=== PATIENT | male | born 1955 | race Caucasian/White ===

== ENCOUNTER 2017-10-01 08:56 | Inpatient (IN) | payer OTHER ==
[~2017-10-01] VITALS: Ht 177.8 cm; Wt 107.1 kg
[~2017-10-01 08:56] MED LIST: ASPI1TAB83 PO; CEPH500C PO; Centrum Silver PO; FEXO1TAB46 PO; LISI-791 PO; METO-478 PO; WARF5TAB90 PO
[2017-10-01] MEDS ORDERED: SODIUM CHLORIDE 0.9% 1000ML 500 ML IV STA (09:34)
[2017-10-01] MEDS ORDERED: ALBUT/IPRATROP 3MG/0.5MG NEB 3 ML VIAL INH STA (09:34)
[2017-10-01] MEDS ORDERED: METHYLPREDNISOLONE 125 MG VIAL IV STA (09:38)
--- NOTE | 2017-10-01 09:52 | EMERGENCY ROOM VISIT NOTE ---
History Report prepared by Radhika: Jolene Lyn Under the Supervision of: Dr. Tim Trejo M.D. First contact with patient: 09:30 Chief Complaint: SHORTNESS OF BREATH Stated Complaint: SHORTNESS OF BREATH History of Present Illness The patient is a 62 year old male who presents to the Emergency Room with complaints of worsening shortness of breath beginning about three weeks ago. The patient states he was sick with a head cold, diarrhea, hot and cold flashes , and body aches beginning three weeks ago. Since being sick three weeks ago, he reports he has been very fatigued and short of breath. The patient's shortness of breath worsens with movement. He states he feels like he "can't get a full breath". The patient was sent into the ED by his PCP for shortness of breath and a low oxygen saturation. He denies any productive cough. The patient has a history of asthma. He states he rarely has difficulty with his asthma. He tried using his rescue inhaler with minimal relief. He denies any history of pneumonia. The patient notes a history of "fluid around his heart" which he believes was CHF. The patient takes 81 mg of Aspirin daily. The patient was previously on Coumadin for a history of a DVT. He did not get a flu shot this year. The patient notes some recent sick contacts. Source of History: patient Onset: three weeks ago Position: other (generalized) Quality: other (shortness of breath) Timing: worsening Modifying Factors (Worsening): movement Associated Symptoms: + SOB, + fatigue, No cough Review of Systems See HPI for pertinent positives & negatives. A total of 10 systems reviewed and were otherwise negative. Past Medical & Surgical Medical Problems: (1) Asthma (2) Diastolic CHF (3) DVT (deep venous thrombosis) (4) Dyslipidemia (5) HTN (hypertension) Surgical Problems: (1) History of cataract surgery Social History Smoking Status: Never Smoker Alcohol Use: occasionally Marital Status: single Housing Status: lives alone Occupation Status: employed Current/Historical Medications Scheduled Aspirin (Aspirin), 81 MG PO DAILY Atorvastatin (Lipitor), 1 TAB PO DAILY Fluticasone Prop/Salmeterol (Advair Diskus 250/50 60 Dose), 1 PUFF INH BID Lisinopril (Zestril), 10 MG PO DAILY Metformin Hcl (Glucophage), 1 TAB PO BID Metoprolol Succinate (Toprol Xl), 25 MG PO DAILY Multiple Vitamins W/ Minerals (Centrum Silver 50+Men), 1 TAB PO DAILY Scheduled PRN Albuterol Sulfate (Proair Respiclick), 2 PUFFS INH QID PRN for SOB/Wheezing Fexofenadine Hcl (Pilar), 180 MG PO DAILY PRN Allergies Coded Allergies: No Known Allergies (Unverified , 02/10/13) Physical Exam Vital Signs Date Time Temp Pulse Resp B/P (MAP) Pulse Ox O2 Delivery O2 Flow Rate FiO2 10/01/17 11:19 99 24 156/102 94 Nasal Cannula 2.0 10/01/17 09:45 81 Room Air 10/01/17 09:43 92 Nasal Cannula 2.0 10/01/17 09:43 92 Nasal Cannula 2.0 10/01/17 09:34 105 10/01/17 09:06 36.4 112 24 148/86 84 Room Air Physical Exam GENERAL: Patient is in no acute distress. HEENT: No acute trauma, normocephalic atraumatic, mucous membranes dry, no nasal congestion, no scleral icterus. NECK: No stridor, no adenopathy, no meningismus, trachea is midline. LUNGS: Decreased breath sounds with bilateral wheezing, breath sounds equal, a few crackles at both bases. HEART: Without murmurs gallops or rubs, regular rate and rhythm. ABDOMEN: Soft, nontender, bowel sounds positive, no hernias, no peritonitis. EXTREMITIES: Mild pedal edema bilaterally, no cyanosis, full range of motion of all the joints without pain or difficulty, no signs for acute trauma. NEUROLOGIC: Oriented x 3, no acute motor or sensory deficits, no focal weakness. SKIN: No rash, no jaundice, no diaphoresis. Medical Decision & Procedures ER Provider Diagnostic Interpretation: Radiology results as stated below per my review and radiologist interpretation: CHEST ONE VIEW PORTABLE FINDINGS: Atherosclerosis of the aortic arch. Cardiac silhouette normal in size. Lungs and pleural spaces clear. Degenerative changes of the thoracic spine. Upper abdomen normal. IMPRESSION: 1. No acute cardiopulmonary disease. Electronically signed by: John Figueredo M.D. CT ANGIOGRAM OF THE CHEST FINDINGS: Thyroid: Imaged portions of the thyroid gland are normal in size and attenuation. Thoracic aorta: The thoracic aorta is normal in caliber and demonstrates standard 3-vessel arch anatomy. No dissection is seen. Pulmonary vasculature: The pulmonary trunk is normal in caliber. There are are extensive pulmonary emboli identified bilaterally. Thrombus is present within the distal right and left main pulmonary arteries. This extends into all lobar branches, and involves segmental and subsegmental branches throughout. Heart: The heart is normal in size and configuration, and without pericardial effusion. Lungs and pleural spaces: There is no airspace consolidation or pleural effusion. The trachea and central airways are clear. There is a 7 mm pulmonary nodule identified at the left lung base on image #76. A 4 mm left lower lobe nodule is seen on image #100. Mediastinum: There is no mediastinal lymphadenopathy. Linda: Clear. Axillae: There is no axillary lymphadenopathy. Upper abdomen: Calcified gallstones are identified. There is reflux of contrast into the abdominal aorta and IVC. Skeletal structures: No lytic or blastic bony lesions are seen. Degenerative change is seen throughout the thoracic spine. IMPRESSION: 1. There are extensive bilateral pulmonary emboli as above. 2. There is no airspace consolidation or pleural effusion. 3. There are 2 pathologically indeterminant left lower lobe pulmonary nodules measuring up to 7 mm. These can be followed as per the Fleischner criteria. See below. 4. Reflux of contrast into the IVC and hepatic veins suggests cardiac dysfunction. 5. Cholelithiasis. Please refer to below summary of Fleischner criteria recommendations for follow-up of incidental CT nodules (Jonathan Brown, Guidelines for management of small pulmonary nodules detected on CT scans: A statement from the Fleischner Society, Radiology 237: [phone].) SOLID NODULES Solitary nodule size: <6 mm * low risk patients: no follow-up needed * high risk patients: optional CT at 12 months Solitary nodule size: 6-8 mm * low risk patients: follow-up at 6-12 months, then consider further follow-up at 18-24 months * high risk patients: initial follow-up CT at 6-12 months and then at 18-24 months if no change Solitary nodule size: >8 mm * either low or high risk patients - consider follow-up CT at 3 months, and/or CT-PET, and/or biopsy Multiple nodules size: <6 mm * low risk patients: no routine follow-up * high risk patients: optional CT at 12 months Multiple nodules size: 6-8 mm * low risk patients: follow-up at 3-6 months, then consider further follow-up at 18-24 months * high risk patients: follow-up at 3-6 months, then at 18-24 months if no change Multiple nodules size: >8 mm * low risk patients: follow-up at 3-6 months, then consider further follow-up at 18-24 months * high risk patients: follow-up at 3-6 months, then at 18-24 months if no change Note: newly detected indeterminate nodule in persons 35 years of age or older. * low risk patients: minimal or absent history of smoking and/or other known risk factors * high risk patients: history of smoking or of other known risk factors (e.g. first degree relative with lung cancer, or exposure to asbestos, radon, uranium) * if a nodule up to 8 mm is partly solid or is ground glass further follow-up is required after 24 months to exclude possible slow growing adenocarcinoma (TEJAL) SUBSOLID NODULES Solitary pure ground-glass nodule * nodule size <6 mm - no CT follow-up required * nodule size >=6 mm - follow-up CT at 6-12 months, then every 2 years until 5 years Solitary part-solid nodule * nodule size <6 mm - no CT follow-up required * nodule size >=6 mm - follow-up CT at 3-6 months. If unchanged, and solid component remains <6 mm, then annual follow-up for 5 years Multiple subsolid nodules * nodule size <6 mm - follow-up CT at 3-6 months, consider further follow-up at 2 and 4 years if stable * nodule size >=6 mm - follow-up CT at 3-6 months, subsequent management based on the most suspicious nodule(s) Electronically signed by: Tim Cullen M.D. Laboratory Results 10/01/17 09:30 Red Blood Count 5.65, Mean Corpuscular Volume 86.9, Mean Corpuscular Hemoglobin 30.1, Mean Corpuscular Hemoglobin Concent 34.6, Mean Platelet Volume 12.7, Neutrophils (%) (Auto) 72.1, Lymphocytes (%) (Auto) 16.9, Monocytes (%) (Auto) 8.9, Eosinophils (%) (Auto) 0.9, Basophils (%) (Auto) 0.2, Neutrophils # (Auto) 7.27, Lymphocytes # (Auto) 1.71, Monocytes # (Auto) 0.90, Eosinophils # (Auto) 0.09, Basophils # (Auto) 0.02 10/01/17 09:30 Test 10/01/17 09:30 10/01/17 10:00 White Blood Count 10.09 K/uL (4.8-10.8) Red Blood Count 5.65 M/uL (4.7-6.1) Hemoglobin 17.0 g/dL (14.0-18.0) Hematocrit 49.1 % (42-52) Mean Corpuscular Volume 86.9 fL (80-100) Mean Corpuscular Hemoglobin 30.1 pg (25-34) Mean Corpuscular Hemoglobin Concent 34.6 g/dl (32-36) Platelet Count 152 K/uL (130-400) Mean Platelet Volume 12.7 fL (7.4-10.4) Neutrophils (%) (Auto) 72.1 % Lymphocytes (%) (Auto) 16.9 % Monocytes (%) (Auto) 8.9 % Eosinophils (%) (Auto) 0.9 % Basophils (%) (Auto) 0.2 % Neutrophils # (Auto) 7.27 K/uL (1.4-6.5) Lymphocytes # (Auto) 1.71 K/uL (1.2-3.4) Monocytes # (Auto) 0.90 K/uL (0.11-0.59) Eosinophils # (Auto) 0.09 K/uL (0-0.5) Basophils # (Auto) 0.02 K/uL (0-0.2) RDW Standard Deviation 43.4 fL (36.4-46.3) RDW Coefficient of Variation 13.6 % (11.5-14.5) Immature Granulocyte % (Auto) 1.0 % Immature Granulocyte # (Auto) 0.10 K/uL (0.00-0.02) Prothrombin Time 10.8 SECONDS (9.0-12.0) Prothromb Time International Ratio 1.0 (0.9-1.1) Activated Partial Thromboplast Time 25.1 SECONDS (21.0-31.0) Partial Thromboplastin Ratio 1.0 Anion Gap 13.0 mmol/L (3-11) Est Creatinine Clear Calc Drug Dose 64.4 ml/min Estimated GFR () 58.6 Estimated GFR (Non- 50.5 BUN/Creatinine Ratio 7.2 (10-20) Calcium Level 9.0 mg/dl (8.5-10.1) Magnesium Level 2.0 mg/dl (1.8-2.4) Total Bilirubin 0.9 mg/dl (0.2-1) Aspartate Amino Transf (AST/SGOT) 28 U/L (15-37) Alanine Aminotransferase (ALT/SGPT) 34 U/L (12-78) Alkaline Phosphatase 68 U/L (45-117) Total Protein 8.3 gm/dl (6.4-8.2) Albumin 3.6 gm/dl (3.4-5.0) Globulin 4.7 gm/dl (2.5-4.0) Albumin/Globulin Ratio 0.8 (0.9-2) Beta-Hydroxybutyric Acid 8.05 mg/dL (0.2-2.81) Influenza Type A Antigen Neg for Influ A (NEG) Influenza Type B Antigen Neg for Influ B (NEG) Laboratory results reviewed by me. Medications Administered Medications (Trade) Dose Ordered Sig/Preethi Route Start Time Stop Time Status Last Admin Dose Admin Sodium Chloride 500 ml @ 999 mls/hr Q31M STAT IV 10/01/17 09:34 10/01/17 10:04 DC 10/01/17 10:02 999 MLS/HR Albuterol/ Ipratropium (Duoneb) 3 ml NOW STAT INH 10/01/17 09:34 10/01/17 09:37 DC 10/01/17 10:02 3 ML Methylprednisolone Sodium Succinate (Solu-Medrol IV) 125 mg NOW STAT IV 10/01/17 09:38 10/01/17 09:39 DC 10/01/17 10:02 125 MG Insulin Human Regular (novoLIN-R U-100 PER UNIT) 10 units NOW STAT IV 10/01/17 10:31 10/01/17 10:32 DC 10/01/17 11:15 10 UNITS ECG Indication: SOB/dyspnea Rate (beats per minute): 105 Findings: no acute ischemic change, no ectopy, other (diffuse nonspecific ST changes) Change: EKG interpreted by me ED Course 0931: The patient was evaluated in room C4. A complete history and physical exam was performed. 0934: Ordered Duoneb 3 ml INH, Sodium Chloride 500 ml @ 999 mls/hr IV. 0938: Ordered Solu-Medrol IV 125 mg IV. 1031: Ordered Insulin Human Regular 10 units IV, Sodium Chloride 500 ml @ 999 mls/hr IV. 1043: Discussed the patient's case with Sandra Sierra. The patient will be evaluated for further management. 1048: I updated the patient on the treatment plan. He is agreeable to come into the hospital. Medical Decision Differential diagnoses include: pneumonia, bronchitis, influenza or flu like symptoms, CHF, dehydration, cardiac ischemia, anemia, PE, asthma exacerbation. There is no leukocytosis or concerning anemia. Renal panel testing shows a high sugar at over 400. No hepatitis. EKG shows a sinus tachycardia with some nonspecific T-wave change. Cardiac enzyme testing times one does show a mild troponin elevation consistent with cardiac injury or strain. No coagulopathy. Influenza testing is negative. Chest film does not show pneumonia or CHF. Chest CT shows bilateral pulmonary emboli. The patient presents with symptoms for weeks. He looked dehydrated clinically. He was slightly tachycardic, he was hypoxic. The patient received IV saline, IV insulin. He was given a DuoNeb. He was given IV Solu-Medrol. He was maintained on supplemental oxygen. The patient requires a hospital stay. He has bilateral pulmonary emboli, he is hyperglycemic, there is a troponin elevation. He is wheezing on exam and appears to be having a flare of asthma. I did speak with the patient and case management. The on-call hospitalist was consulted. Medication Reconcilliation Current Medication List: was personally reviewed by fl Blood Pressure Screening Patient's blood pressure: Elevated blood pressure Blood pressure disposition: Referred to PCP Consults Time Called: 1039 Consulting Physician: Sandra Sierra Returned Call: [phone] Discussed the patient's case with Sandra Sierra. The patient will be evaluated for further management. Impression Primary Impression: Hypoxia Additional Impressions: Hyperglycemia Dehydration Asthma with exacerbation Pulmonary embolism Critical Care I have personally spent greater than 30 minutes of critical care time in the direct management of this patient. This includes bedside care, interpretation of diagnostic studies, and testing, discussion with consultants, patient, and family members, and other required patient management activities. This 30 minutes is in excess of all separately billable procedures. Scribe Attestation The scribe's documentation has been prepared under my direction and personally reviewed by me in its entirety. I confirm that the note above accurately reflects all work, treatment, procedures, and medical decision making performed by me. Departure Information Dispostion Being Evaluated By Hospitalist Referrals Chun Su M.D. (PCP) Patient Instructions My [facility] Problem Qualifiers
--- NOTE | 2017-10-01 09:58 | DIAGNOSTIC IMAGING REPORT ---
CHEST ONE VIEW PORTABLE CLINICAL HISTORY: 62 years-old Male presenting with EVALUATE RESPIRATORY DISTRESS.DYSPNEA. TECHNIQUE: Portable upright AP view of the chest was obtained. COMPARISON: None. FINDINGS: Atherosclerosis of the aortic arch. Cardiac silhouette normal in size. Lungs and pleural spaces clear. Degenerative changes of the thoracic spine. Upper abdomen normal. IMPRESSION: 1. No acute cardiopulmonary disease. Electronically signed by: John Figueredo M.D. 10/01/2017 9:57 AM Dictated Date/Time: 10/01/2017 9:56 AM
[2017-10-01 09:59] LABS: BASO % 0.2 %; BASO ABS # 0.02 K/uL (0-0.2); EOS % 0.9 %; EOS ABS # 0.09 K/uL (0-0.5); HEMATOCRIT 49.1 % (42-52); LYMPH % 16.9 %; LYMPH ABS # 1.71 K/uL (1.2-3.4); MEAN CELL VOLUME 86.9 fL (80-100); MEAN CORPUSCULAR HEMOGLOBIN 30.1 pg (25-34); MEAN CORPUSCULAR HGB CONC 34.6 g/dl (32-36); MEAN PLATELET VOLUME 12.7 fL (7.4-10.4); MONO % 8.9 %; NEUT % 72.1 %; NEUT ABS # 7.27 K/uL (1.4-6.5); PLATELET COUNT 152 K/uL (130-400); RED CELL DISTRIBUTION WIDTH CV 13.6 % (11.5-14.5); RED CELL DISTRIBUTION WIDTH SD 43.4 fL (36.4-46.3); WHITE BLOOD COUNT 10.09 K/uL (4.8-10.8)
[2017-10-01 10:08] LABS: PTT PATIENT 25.1 SECONDS (21.0-31.0)
[2017-10-01 10:19] LABS: ALBUMIN 3.6 gm/dl (3.4-5.0); CREATININE 1.45 mg/dl (0.60-1.40); POTASSIUM 3.4 mmol/L (3.5-5.1)
[2017-10-01 10:23] LABS: TOTAL PROTEIN 8.3 gm/dl (6.4-8.2)
[2017-10-01] MEDS ORDERED: OPTIRAY 320 IV PRN (10:30)
[2017-10-01] MEDS ORDERED: SODIUM CHLORIDE 0.9% 500ML 500 ML IV STA (10:31)
[2017-10-01] MEDS ORDERED: NovoLIN-R INSULIN PER UNIT CHARGE IV STA (10:31)
[2017-10-01 10:32] LABS: INFLUENZA B ANTIGEN Neg for Influ B (NEG)
[2017-10-01] MEDS ORDERED: SODIUM CHLORIDE 0.9% 1000ML 1,000 ML IV SCH (11:17)
[2017-10-01] MEDS ORDERED: INSULIN IV INFUSION PROTOCOL STA (11:20)
[2017-10-01] MEDS ORDERED: ASPIRIN 324 MG CHEW PO STA (11:22)
[2017-10-01] MEDS ORDERED: POTASSIUM CHLORIDE 20 MEQ TABCR PO STA (11:29)
[2017-10-01] MEDS ORDERED: HHS GOAL RANGE 250-350 mg/dl ONE (11:30)
[2017-10-01] MEDS ORDERED: PHARMACY GLYCEMIC MGMT CONSULT PRN (11:30)
[2017-10-01] MEDS ORDERED: ACETAMINOPHEN 325 MG TAB PO PRN (11:30)
[2017-10-01] MEDS ORDERED: ONDANSETRON INJ 2 MG/ML 2 ML VIAL IV PRN (11:30)
[2017-10-01] MEDS ORDERED: SEVERE STRESS LEVEL ONE (11:30)
[2017-10-01] MEDS ORDERED: DEXTROSE 50% 50 ML SYR IV PRN (11:45)
[2017-10-01] MEDS ORDERED: GLUCOSE 40% GEL 15 GM TUBE PO PRN (11:45)
[2017-10-01] MEDS ORDERED: GLUCAGON FOR INJ 1 MG VIAL SQ PRN (11:45)
[2017-10-01] MEDS ORDERED: GLUCOSE 10 TABS/TUBE PO PRN (11:45)
--- NOTE | 2017-10-01 11:47 | DIAGNOSTIC IMAGING REPORT ---
CT ANGIOGRAM OF THE CHEST CLINICAL HISTORY: Atypical chest pain. Dyspnea. COMPARISON STUDY: Chest x-ray dated 10/01/2017. TECHNIQUE: Following the IV administration of 94 cc of Optiray 320, CT angiogram of the chest was performed from the upper abdomen to the thoracic inlet utilizing the pulmonary embolus protocol. Images are reviewed in the axial, sagittal, and coronal planes. 3-D MIPS images are created and assessed. IV contrast was administered without complication. A dose lowering technique was utilized adhering to the principles of ALARA. CT DOSE: 619.44 mGy.cm FINDINGS: Thyroid: Imaged portions of the thyroid gland are normal in size and attenuation. Thoracic aorta: The thoracic aorta is normal in caliber and demonstrates standard 3-vessel arch anatomy. No dissection is seen. Pulmonary vasculature: The pulmonary trunk is normal in caliber. There are are extensive pulmonary emboli identified bilaterally. Thrombus is present within the distal right and left main pulmonary arteries. This extends into all lobar branches, and involves segmental and subsegmental branches throughout. Heart: The heart is normal in size and configuration, and without pericardial effusion. Lungs and pleural spaces: There is no airspace consolidation or pleural effusion. The trachea and central airways are clear. There is a 7 mm pulmonary nodule identified at the left lung base on image #76. A 4 mm left lower lobe nodule is seen on image #100. Mediastinum: There is no mediastinal lymphadenopathy. Linda: Clear. Axillae: There is no axillary lymphadenopathy. Upper abdomen: Calcified gallstones are identified. There is reflux of contrast into the abdominal aorta and IVC. Skeletal structures: No lytic or blastic bony lesions are seen. Degenerative change is seen throughout the thoracic spine. IMPRESSION: 1. There are extensive bilateral pulmonary emboli as above. 2. There is no airspace consolidation or pleural effusion. 3. There are 2 pathologically indeterminant left lower lobe pulmonary nodules measuring up to 7 mm. These can be followed as per the Fleischner criteria. See below. 4. Reflux of contrast into the IVC and hepatic veins suggests cardiac dysfunction. 5. Cholelithiasis. Please refer to below summary of Fleischner criteria recommendations for follow-up of incidental CT nodules (Jonathan Brown, Guidelines for management of small pulmonary nodules detected on CT scans: A statement from the Fleischner Society, Radiology 237: [phone].) SOLID NODULES Solitary nodule size: <6 mm * low risk patients: no follow-up needed * high risk patients: optional CT at 12 months Solitary nodule size: 6-8 mm * low risk patients: follow-up at 6-12 months, then consider further follow-up at 18-24 months * high risk patients: initial follow-up CT at 6-12 months and then at 18-24 months if no change Solitary nodule size: >8 mm * either low or high risk patients - consider follow-up CT at 3 months, and/or CT-PET, and/or biopsy Multiple nodules size: <6 mm * low risk patients: no routine follow-up * high risk patients: optional CT at 12 months Multiple nodules size: 6-8 mm * low risk patients: follow-up at 3-6 months, then consider further follow-up at 18-24 months * high risk patients: follow-up at 3-6 months, then at 18-24 months if no change Multiple nodules size: >8 mm * low risk patients: follow-up at 3-6 months, then consider further follow-up at 18-24 months * high risk patients: follow-up at 3-6 months, then at 18-24 months if no change Note: newly detected indeterminate nodule in persons 35 years of age or older. * low risk patients: minimal or absent history of smoking and/or other known risk factors * high risk patients: history of smoking or of other known risk factors (e.g. first degree relative with lung cancer, or exposure to asbestos, radon, uranium) * if a nodule up to 8 mm is partly solid or is ground glass further follow-up is required after 24 months to exclude possible slow growing adenocarcinoma (TEJAL) SUBSOLID NODULES Solitary pure ground-glass nodule * nodule size <6 mm - no CT follow-up required * nodule size >=6 mm - follow-up CT at 6-12 months, then every 2 years until 5 years Solitary part-solid nodule * nodule size <6 mm - no CT follow-up required * nodule size >=6 mm - follow-up CT at 3-6 months. If unchanged, and solid component remains <6 mm, then annual follow-up for 5 years Multiple subsolid nodules * nodule size <6 mm - follow-up CT at 3-6 months, consider further follow-up at 2 and 4 years if stable * nodule size >=6 mm - follow-up CT at 3-6 months, subsequent management based on the most suspicious nodule(s) Electronically signed by: Tim Cullen M.D. 10/01/2017 11:45 AM Dictated Date/Time: 10/01/2017 11:40 AM
[2017-10-01] MEDS ORDERED: ALBUT/IPRATROP 3MG/0.5MG NEB 3 ML VIAL INH PRN (12:00)
[2017-10-01 12:15] VITALS: BP 159/102; PULSE 100; TEMP 36.4; O2SAT 96; BMI 35.3
[2017-10-01] MEDS ORDERED: MULT-1093 PO (12:24)
[2017-10-01] MEDS ORDERED: ALBU18002 INH (12:24)
[2017-10-01] MEDS ORDERED: METF850T PO (12:24)
[2017-10-01] MEDS ORDERED: ATOR10TA82 PO (12:24)
[2017-10-01] MEDS ORDERED: ADVIN25/60 INH (12:24)
[2017-10-01] MEDS ORDERED: METOPROLOL SUCC 25MG EXT REL TAB PO ONE (13:00)
[2017-10-01] MEDS: INSULIN REGULAR 250 UNITS in SODIUM CHLORIDE 0.9% 250ML 250 ML IV SCH ×3 (13:01→17:57)
[2017-10-01] MEDS: POTASSIUM CHLORIDE INJ 40 MEQ in SODIUM CHLORIDE 0.9% 1000ML 1,000 ML IV SCH (13:06)
--- NOTE | 2017-10-01 13:20 | History and Physical ---
History & Physical Date & Time of Service: Oct 01, 2017 ~ 11:00 Chief Complaint: Shortness of Breath Primary Care Physician: Chun Su M.D. History of Present Illness 62 year old male who presents to the ED with shortness of breath. Patient reports his symptoms have been present for the past 3 weeks. He reports it initially started with sinus congestion and cough. He then developed nausea and vomiting. He denies hematemesis or coffee ground emesis. He had episodes of body aches, hot flashes, and chills. He did not take his temperature. He reports most of his symptoms resolved about 3 days ago however shortness of breath and cough has persisted. He has shortness of breath with minimal exertion. Cough has been non productive. He has history of asthma however does not use his inhalers routinely. He also self stopped most of his medications several months ago. He denies abdominal pain or diarrhea. No lightheadedness, dizziness, diaphoresis, or syncopal events. He denies chest pain. No urinary symptoms. In the ED, patient's labs show a mildly elevated troponin and hyperglycemia. He was also hypoxic on room air at 81%, this improved with oxygen 2L via NC. CTA chest shows BL PEs. Past Medical/Surgical History Medical Problems: (1) Asthma Status: Chronic (2) Diastolic CHF Status: Chronic (3) DVT (deep venous thrombosis) Permanent Comment: 2012, completed 1 year of Coumadin therapy Status: Chronic (4) Dyslipidemia Status: Chronic (5) HTN (hypertension) Status: Chronic Surgical Problems: (1) History of cataract surgery Status: Chronic Family History FH: heart disease MOTHER FH: lung cancer FATHER Social History Smoking Status: Never Smoker Alcohol Use: occasionally Immunizations History of Influenza Vaccine: Yes Influenza Vaccine Date: Jun 14, 2007 History of Tetanus Vaccine?: Yes Tetanus Immunization Date: Jun 03, 2005 History of Pneumococcal: Yes Pneumococcal Date: Jul 03, 2001 Allergies Coded Allergies: No Known Allergies (Unverified , 02/10/13) Home Medications Scheduled Aspirin (Aspirin), 81 MG PO DAILY Atorvastatin (Lipitor), 1 TAB PO DAILY Fluticasone Prop/Salmeterol (Advair Diskus 250/50 60 Dose), 1 PUFF INH BID Lisinopril (Zestril), 10 MG PO DAILY Metformin Hcl (Glucophage), 1 TAB PO BID Metoprolol Succinate (Toprol Xl), 25 MG PO DAILY Multiple Vitamins W/ Minerals (Centrum Silver 50+Men), 1 TAB PO DAILY Scheduled PRN Albuterol Sulfate (Proair Respiclick), 2 PUFFS INH QID PRN for SOB/Wheezing Fexofenadine Hcl (Pilar), 180 MG PO DAILY PRN Review of Systems ROS per HPI, all other systems reviewed and negative Physical Exam Vital Signs Date Time Temp Pulse Resp B/P (MAP) Pulse Ox O2 Delivery O2 Flow Rate FiO2 10/01/17 11:47 100 24 163/91 94 Nasal Cannula 2.0 10/01/17 11:19 99 24 156/102 94 Nasal Cannula 2.0 10/01/17 09:45 81 Room Air 10/01/17 09:43 92 Nasal Cannula 2.0 10/01/17 09:43 92 Nasal Cannula 2.0 10/01/17 09:34 105 10/01/17 09:06 36.4 112 24 148/86 84 Room Air please refer to Dr. Malone's addendum for physical exam Diagnostics Laboratory Results Results Past 24 Hours Test 10/01/17 09:30 10/01/17 10:00 Range/Units White Blood Count 10.09 4.8-10.8 K/uL Red Blood Count 5.65 4.7-6.1 M/uL Hemoglobin 17.0 14.0-18.0 g/dL Hematocrit 49.1 42-52 % Mean Corpuscular Volume 86.9 80-100 fL Mean Corpuscular Hemoglobin 30.1 25-34 pg Mean Corpuscular Hemoglobin Concent 34.6 32-36 g/dl Platelet Count 152 130-400 K/uL Mean Platelet Volume 12.7 7.4-10.4 fL Neutrophils (%) (Auto) 72.1 % Lymphocytes (%) (Auto) 16.9 % Monocytes (%) (Auto) 8.9 % Eosinophils (%) (Auto) 0.9 % Basophils (%) (Auto) 0.2 % Neutrophils # (Auto) 7.27 1.4-6.5 K/uL Lymphocytes # (Auto) 1.71 1.2-3.4 K/uL Monocytes # (Auto) 0.90 0.11-0.59 K/uL Eosinophils # (Auto) 0.09 0-0.5 K/uL Basophils # (Auto) 0.02 0-0.2 K/uL RDW Standard Deviation 43.4 36.4-46.3 fL RDW Coefficient of Variation 13.6 11.5-14.5 % Immature Granulocyte % (Auto) 1.0 % Immature Granulocyte # (Auto) 0.10 0.00-0.02 K/uL Prothrombin Time 10.8 9.0-12.0 SECONDS Prothromb Time International Ratio 1.0 0.9-1.1 Activated Partial Thromboplast Time 25.1 21.0-31.0 SECONDS Partial Thromboplastin Ratio 1.0 Sodium Level 133 136-145 mmol/L Potassium Level 3.4 3.5-5.1 mmol/L Chloride Level 98 98-107 mmol/L Carbon Dioxide Level 22 21-32 mmol/L Anion Gap 13.0 3-11 mmol/L Blood Urea Nitrogen 11 7-18 mg/dl Creatinine 1.45 0.60-1.40 mg/dl Est Creatinine Clear Calc Drug Dose 64.4 ml/min Estimated GFR () 58.6 Estimated GFR (Non- 50.5 BUN/Creatinine Ratio 7.2 10-20 Random Glucose 414 70-99 mg/dl Calcium Level 9.0 8.5-10.1 mg/dl Magnesium Level 2.0 1.8-2.4 mg/dl Total Bilirubin 0.9 0.2-1 mg/dl Aspartate Amino Transf (AST/SGOT) 28 15-37 U/L Alanine Aminotransferase (ALT/SGPT) 34 12-78 U/L Alkaline Phosphatase 68 45-117 U/L Troponin I 0.217 0-0.045 ng/ml Total Protein 8.3 6.4-8.2 gm/dl Albumin 3.6 3.4-5.0 gm/dl Globulin 4.7 2.5-4.0 gm/dl Albumin/Globulin Ratio 0.8 0.9-2 Beta-Hydroxybutyric Acid 8.05 0.2-2.81 mg/dL Influenza Type A Antigen Neg for Influ A NEG Influenza Type B Antigen Neg for Influ B NEG Microbiology Results 10/01/17 Blood Culture, Received Pending 10/01/17 Blood Culture, Received Pending Diagnostic Radiology CXR IMPRESSION: 1. No acute cardiopulmonary disease. CTA CHEST IMPRESSION: 1. There are extensive bilateral pulmonary emboli as above. 2. There is no airspace consolidation or pleural effusion. 3. There are 2 pathologically indeterminant left lower lobe pulmonary nodules measuring up to 7 mm. These can be followed as per the Fleischner criteria. See below. 4. Reflux of contrast into the IVC and hepatic veins suggests cardiac dysfunction. 5. Cholelithiasis. Impression Assessment and Plan ACUTE HYPOXIC RESPIRATORY FAILURE BILATERAL PULMONARY EMBOLISM - admit to tele - patient presenting with persistent shortness of breath with minimal exertion x 3 weeks; in the ED, found to be hypoxic on room air at 81% which improved with oxygen 2L via NC - CTA chest showing BL pulmonary embolism - hx of DVT in 2012, completed Coumadin therapy - now will need lifelong anticoagulation - will start IV heparin with transition or oral agent - Coumadin vs. NOAC pending insurance approval HYPERGLYCEMIA, UNCONTROLLED DM - hgb a1c 9.9 11/2015 - patient self stopped metformin - glucose 414 on presentation - will start IV insulin infusion - may need insulin at discharge ELEVATED TROPONIN - likely demand ischemia from hypoxia / acute PE - continue to cycle cardiac enzymes - check resting echo - EKG shows nonspecific T-wave changes (flattening laterally and inverted anteriorly) AMPARO - likely prerenal due to acute illness - IVF - follow renal functions ASTHMA EXACERBATION - has wheezing on exam - s/p solumedrol 125mg IV in the ED, will continue with Prednisone 40mg PO x 5 days - likely due to acute PE, possible URI; will hold on antibiotics given lack of fever, leukocytosis, and sputum production - has not been using Advair CHRONIC DIASTOLIC CHF - appears dry on exam and with AMPARO - does not take diuretics - check echo HTN - BP elevated - patient self stopped metoprolol and lisinopril; will resume metoprolol, hold on Lisinopril due to AMPARO HLD - patient self stopped statin - check lipids in AM and resume accordingly PULMONARY NODULES - outpatient follow up CT DVT PROPHYLAXIS - Heparin gtt DISPO - In my clinical judgment this beneficiary meets acute admission criteria, established by CMS, that includes being hospitalized through two midnights. Attending physician Dr. Malone addendum This is a 62 year old Male found to have filling defects on both sides of the lungs on CTA for pulmonary embolism. At this time patient is hemodynamically stable. He was examined with SENIOR COMPLIANCE OFFICER Sandra Blanton in the Emergency room for which I agree with the above assessment and plan and would like to add that I have re- assessed the patient on the telemetry gloria where patient is speaking comfortably on room oxygen. His brother Terrell is at the bedside who can be contacted [phone], . Have explained to the patient and his brother the radiology impression that the pulmonary embolism is "extensive." Have informed the patient and family that if patient decompensates during hospital stay such as hemodynamic instability or acute sustained tachycardia of hypoxia then immediate hospital transfer to higher level of care center may be needed. Patient agrees to stay overnight at [facility] for anticoagulation for now. At this time patient is hemodynamically stable and condition on telemetry gloria appears to be improved compared to initial ED presentation Level of Care Telemetry Resuscitation Status FULL RESUSCITATION VTE Prophylaxis VTE Risk Assessment Done? Y/N: Yes Risk Level: Moderate
[2017-10-01] MEDS: ASPIRIN 81 MG ECTAB PO SCH (13:46)
[2017-10-01] MEDS: INSULIN ASPART 100 UNITS/ML 3 ML PEN SC SCH ×3 (13:46→21:00)
[2017-10-01] MEDS ORDERED: HEPARIN SOD 5000 UNIT/0.5 ML CARP SQ SCH (14:00)
[2017-10-01] MEDS ORDERED: PERFLUTREN LIPID MICROSPHERE (DEFINITY) IV ONE (14:16)
[2017-10-01] MEDS ORDERED: HEPARIN IV BOLUS 7,000 UNIT in SYRINGE 0 ML IV ONE (14:30)
[2017-10-01] MEDS: HEPARIN 25,000 UNIT/500ML D5W 500 ML IV PRN (14:39)
[2017-10-01] MEDS ORDERED: PNEUMOCOCCAL POLYSACCHARIDES 25 MCG/0.5 ML VIAL/SYR IM. ONE (14:45)
[2017-10-01] MEDS ORDERED: PNEUMOCOCCAL ADMINISTRATION CHARGE ONE (14:45)
--- NOTE | 2017-10-01 15:06 | Pharmacy Progress Note ---
Glycemic Control Intl Consult Date of Service Oct 01, 2017. Scope Glycemic Pharmacist consulted by PAU Lundberg on 10/01/17 for glycemic control and to write orders per [facility] inpatient glycemic control protocol Objective Weight (Kilograms): 111.500 Accuchecks BSG (last 24hrs): Test 10/01/17 09:30 10/01/17 12:30 10/01/17 13:26 10/01/17 14:47 Random Glucose 414 mg/dl (70-99) Bedside Glucose 247 mg/dl (70-99) 306 mg/dl (70-99) 301 mg/dl (70-99) Laboratory Data (last 24hrs) Test 10/01/17 09:30 10/01/17 15:00 Anion Gap 13.0 mmol/L BUN/Creatinine Ratio 7.2 Blood Urea Nitrogen 11 mg/dl Creatinine 1.45 mg/dl Potassium Level 3.4 mmol/L Sodium Level 133 mmol/L White Blood Count 10.09 K/uL Red Blood Count 5.65 M/uL Hemoglobin 17.0 g/dL Hematocrit 49.1 % Mean Corpuscular Volume 86.9 fL Mean Corpuscular Hemoglobin 30.1 pg Mean Corpuscular Hemoglobin Concent 34.6 g/dl Platelet Count 152 K/uL Mean Platelet Volume 12.7 fL Neutrophils (%) (Auto) 72.1 % Lymphocytes (%) (Auto) 16.9 % Monocytes (%) (Auto) 8.9 % Eosinophils (%) (Auto) 0.9 % Basophils (%) (Auto) 0.2 % Neutrophils # (Auto) 7.27 K/uL Lymphocytes # (Auto) 1.71 K/uL Monocytes # (Auto) 0.90 K/uL Eosinophils # (Auto) 0.09 K/uL Basophils # (Auto) 0.02 K/uL Recent Pertinent Medications Outpatient Anti-diabetic Regimen: * N/A Risk Factors for Insulin Resistance: * IVF: heparin infusion * Diet: T2 DM Assessment & Plan ASSESSMENT: * Mr Serra is a 62 y/o M with a PMH of DVT, asthma, CHF, and HTN admitted with bilateral pulmonary embolisms. He self-stopped his metformin. On admission patient started on insulin infusion. Currently has an acute kidney injury. * Continue infusion overnight and change to basal-bolus once patient more stabilized. PLAN FOR INPATIENT GLYCEMIC CONTROL: * Starting IV insulin infusion per severe stress protocol * Goal Range 100 - 200 mg/dl * In the critical care setting, continuous IV insulin infusion has been shown to be the best method for achieving glycemic targets. * Holding outpatient oral diabetes medications * Please note that the plan above was derived based on current level of insulin resistance and hospital stress. These recommendations are appropriate for inpatient admission only. Plan of care upon discharge will need to be reassessed to avoid potential outpatient hypo/hyperglycemia. Thank you.
[2017-10-01 15:14] VITALS: BP 144/88; PULSE 91; TEMP 36.7; O2SAT 91
[2017-10-01 15:58] LABS: POTASSIUM 4.2 mmol/L (3.5-5.1)
[2017-10-01 16:30] VITALS: BMI 35.3
[2017-10-01 21:17] VITALS: BP 132/82; PULSE 75; TEMP 36.9; O2SAT 94
[2017-10-01 21:25] LABS: PTT PATIENT 52.7 SECONDS (21.0-31.0)
[2017-10-01 23:59] VITALS: BP 132/86; PULSE 83; TEMP 36.6; O2SAT 95
[2017-10-02] MEDS: POTASSIUM CHLORIDE INJ 40 MEQ in SODIUM CHLORIDE 0.9% 1000ML 1,000 ML IV SCH ×2 (01:51→15:06)
[2017-10-02 04:00] VITALS: BP 122/84; PULSE 78; TEMP 36.5; O2SAT 93
[2017-10-02 06:04] LABS: HEMATOCRIT 44.4 % (42-52); HEMOGLOBIN 15.3 g/dL (14.0-18.0); MEAN CELL VOLUME 86.5 fL (80-100); MEAN CORPUSCULAR HEMOGLOBIN 29.8 pg (25-34); MEAN CORPUSCULAR HGB CONC 34.5 g/dl (32-36); MEAN PLATELET VOLUME 12.4 fL (7.4-10.4); PLATELET COUNT 143 K/uL (130-400); RED CELL DISTRIBUTION WIDTH CV 13.7 % (11.5-14.5); RED CELL DISTRIBUTION WIDTH SD 43.2 fL (36.4-46.3); WHITE BLOOD COUNT 11.83 K/uL (4.8-10.8)
[2017-10-02 06:39] LABS: CALCIUM 8.6 mg/dl (8.5-10.1); CREATININE 0.97 mg/dl (0.60-1.40); POTASSIUM 3.8 mmol/L (3.5-5.1)
[2017-10-02 06:43] LABS: PTT PATIENT 51.1 SECONDS (21.0-31.0)
[2017-10-02 06:50] LABS: HEMOGLOBIN A1C 10.2 % (4.5-5.6)
[2017-10-02] MEDS: HEPARIN 25,000 UNIT/500ML D5W 500 ML IV PRN ×2 (07:56→23:55)
[2017-10-02] MEDS: INSULIN ASPART 100 UNITS/ML 3 ML PEN SC SCH ×4 (08:06→20:16)
[2017-10-02] MEDS: METOPROLOL SUCC 25MG EXT REL TAB PO SCH (08:06)
[2017-10-02] MEDS: ASPIRIN 81 MG ECTAB PO SCH (08:06)
[2017-10-02] MEDS: CEROVITE ADV FORMULA TAB PO SCH (08:06)
[2017-10-02 08:33] VITALS: BP 155/88; PULSE 84; TEMP 37; O2SAT 96
[2017-10-02] MEDS ORDERED: ASPIRIN 81 MG ECTAB PO SCH (09:00)
[2017-10-02] MEDS ORDERED: INSULIN GLARGINE SOLOSTAR 100 UNITS/ML 3 ML PEN SC ONE (10:00)
--- NOTE | 2017-10-02 11:05 | ECHOCARDIOGRAM REPORT ---
*NOTICE TO RECEIVING REPUBLICAN AGENCY This information is strictly Confidential and protected under [place] law. [place] law prohibits you from making any further disclosure of this information unless further disclosure is expressly permitted by the written consent of the person to whom it pertains or is authorized by law. A general authorization for the release of medical or other information is not sufficient for this purpose. Hospital accepts no responsibility if the information is made available to any other person, INCLUDING THE PATIENT. Interpretation Summary * Name: DINA SARGENT Study Date: 10/01/2017 01:51 PM BP: 156/102 mmHg * Patient Location: C.2T\S\S229\S\2 HR: 93 * : 1955 (M/d/yyyy) Gender: Male Height: 70 in * Age: 62 yrs Ethnicity: CA Weight: 245 lb * Ordering Physician: Sandra Blanton * Referring Physician: Self, Referred * Performed By: Patricia Malave RDCS * * Reason For Study: ELEVATED TROPONIN, PULMONARY EMBOLISM ON CT SCAN * BSA: 2.3 m2 * -- Conclusions -- * The left ventricular cavity is small and appears underfilled. * The interventricular septum is flattened consistent with RV pressure/volume overload. * The LV wall motion is otherwise normal. * The left ventricle is hyperdynamic with LV Ejection Fraction = 65-70%. * The right ventricle is not well visualized however it appears to be severely dilated. * The right ventricular systolic function is moderate to severely reduced. * Although Doppler data does not suggest pulmonary hypertension , the 2D , images are consistent with clinical diagnosis of pulmonary embolism with right ventricular strain pattern. * No piror studies are available for comparison. Procedure Details * A complete two-dimensional transthoracic echocardiogram was performed (2D, M-mode, Doppler and color flow Doppler). * A contrast injection of Definity was performed to improve assessment of LV function. * Contrast was injected into an intravenous site in the left arm. * One vial of Definity ultrasound contrast was diluted in normal saline to a total volume of 10 ml. A total of '1' ml of solution was administered during imaging. * Lot # [id number] of Definity utilized for procedure. * Expiration date SEP 21. * The attending nurse who injected the contrast agent was ANATOLY OLIVEIRA. Left Ventricle * The left ventricular cavity is small. * There is moderate concentric left ventricular hypertrophy. * The left ventricle is hyperdynamic. * Ejection Fraction = 65-70%. * Flattened septum is consistent with RV pressure/volume overload. * The LV wall motion is otherwise normal. Right Ventricle * The right ventricle is not well visualized. * The right ventricle is severely dilated. * The right ventricular systolic function is moderate to severely reduced. Atria * The left atrial size is normal. * Right atrial size is normal. * There is no evidence of atrial septal defect, but resolution does not allow assessment for a patent foramen ovale. Mitral Valve * The mitral valve is normal. * There is no mitral valve stenosis. * Significant mitral regurgitation is absent. Tricuspid Valve * The tricuspid valve is normal. * There is no tricuspid stenosis. * Significant tricuspid regurgitation is absent. * Doppler findings do not suggest pulmonary hypertension. Aortic Valve * The aortic valve is trileaflet. * Aortic valve sclerosis mild, without significant aortic valvular stenosis. * Aortic stenosis is absent. * There is no significant aortic regurgitation. Pulmonic Valve * The pulmonary valve is not well seen, but the Doppler examination is normal without significant regurgitation or stenosis. Great Vessels * The aortic root and proximal ascending aorta are normal sized. Pericardium/Pleural * There is no pericardial effusion. Great Vessels * Normal inferior vena cava diameter and respiratory variation suggests normal central venous pressure. Left Ventricular Diastolic Function * Grade I diastolic dysfunction, (abnormal relaxation pattern). MMode 2D Measurements and Calculations IVSd 1.4 cm IVSs 1.8 cm LVIDd 3.6 cm LVIDs 2.4 cm LVPWd 1.4 cm LVPWs 2.2 cm IVS/LVPW 1.0 FS 34.9 % EDV(Teich) 55.5 ml ESV(Teich) 19.4 ml EF(Teich) 65.0 % EDV(cubed) 47.8 ml ESV(cubed) 13.2 ml EF(cubed) 72.4 % % IVS thick 24.9 % % LVPW thick 52.3 % LV mass(C)d 188.3 grams LV mass(C)dI 82.8 grams/m\S\2 LV mass(C)s 200.3 grams LV mass(C)sI 88.0 grams/m\S\2 SV(Teich) 36.1 ml SI(Teich) 15.9 ml/m\S\2 SV(cubed) 34.6 ml SI(cubed) 15.2 ml/m\S\2 Ao root diam 3.2 cm Ao root area 8.0 cm\S\2 LA dimension 2.9 cm LA/Ao 0.92 LVAd ap4 24.3 cm\S\2 LVLd ap4 8.6 cm EDV(MOD-sp4) 55.1 ml EDV(sp4-el) 58.1 ml LVAs ap4 11.9 cm\S\2 LVLs ap4 6.1 cm ESV(MOD-sp4) 18.6 ml ESV(sp4-el) 19.8 ml EF(MOD-sp4) 66.2 % EF(sp4-el) 66.0 % LVAd ap2 29.9 cm\S\2 LVLd ap2 9.2 cm EDV(MOD-sp2) 80.8 ml EDV(sp2-el) 82.6 ml LVAs ap2 14.5 cm\S\2 LVLs ap2 6.7 cm ESV(MOD-sp2) 27.0 ml ESV(sp2-el) 26.3 ml EF(MOD-sp2) 66.6 % EF(sp2-el) 68.2 % LVLd %diff 6.2 % EDV(MOD-bp) 68.9 ml LVLs %diff 9.9 % ESV(MOD-bp) 22.5 ml EF(MOD-bp) 67.3 % SV(MOD-sp4) 36.5 ml SI(MOD-sp4) 16.1 ml/m\S\2 SV(MOD-sp2) 53.8 ml SI(MOD-sp2) 23.6 ml/m\S\2 SV(MOD-bp) 46.4 ml SI(MOD-bp) 20.4 ml/m\S\2 SV(sp4-el) 38.3 ml SI(sp4-el) 16.8 ml/m\S\2 SV(sp2-el) 56.3 ml SI(sp2-el) 24.8 ml/m\S\2 Doppler Measurements and Calculations MV E max francisco 48.7 cm/sec MV A max francisco 82.0 cm/sec MV E/A 0.59 MV dec time 0.18 sec Ao V2 max 115.2 cm/sec Ao max PG 5.3 mmHg Ao max PG (full) 1.1 mmHg LV V1 max PG 4.3 mmHg LV V1 max 103.1 cm/sec TR max francisco 266.4 cm/sec
[2017-10-02 11:54] VITALS: BMI 35.1
[2017-10-02 12:16] VITALS: BP 142/101; PULSE 79; TEMP 36.5; O2SAT 93
--- NOTE | 2017-10-02 13:20 | Pharmacy Progress Note ---
Pharmacy Glycemic Short Note 2 Date of Service Oct 02, 2017. OUTPATIENT ANTIDIABETIC REGIMEN: * None- self stopped metformin * A1c = 10.2% on 09/22/17 ASSESSMENT: * 62yo T2DM male admitted with b/l PE and severe hyperglycemia secondary to poor outpatient control and steroids * Steroids tapered to prednisone 40mg PO daily today. Should yield a small improvement in BSGs. * Pt initiated on IV insulin infusion yesterday for severe hyperglycemia. * Hyperglycemia resolved this morning. Pt meets criteria for transition from IV to Sq basal bolus insulin regimen * NPH is the preferred basal insulin for steroid induced hyperglycemia secondary to once daily prednisone, however, suspect that patient will need 24hr basal at discharge based on elevated A1c. Therefore, will use Lantus instead of NPH * Average drip rate is ~2.9 units/hr plus 25 units of prandial coverage while on IV insulin infusion. * This converts to ~95 units/day --> will use 80% of this for conversion to SQ * Will start Sq basal bolus regimen based on estimated total daily dose of ~ 75 units/day PLAN FOR INPATIENT GLYCEMIC CONTROL: * Basal insulin * Lantus 40 units SQ x 1 dose this AM * Will continue IV insulin infusion until held per calculator or 6 hrs after initial dose of lantus given - whichever happens sooner * {infusion turned itself off ~ 1.5hrs after giving Lantus} * Will try to keep basal insulin at once daily to simplify outpatient regimen * Bolus insulin * NovoLog per scale ACHS or Q6hrs while NPO * Goal Range: Low 120 mg/dL - High 150 mg/dL * Correction Factor: 20 mg/dL/unit * Nutritional / Prandial insulin per carb ratio of 1 unit per 6 grams CHO consumed PLAN FOR DISCHARGE: * A1c significantly elevated at 10.2% * Discussed plans for discharge with patient educator. * Recommend Metformin + basal insulin. * Basal insulin dosing to be determined closer to discharge since current dosing is stressed for prednisone
[2017-10-02 15:05] VITALS: BP 162/87; PULSE 75; TEMP 36.7; O2SAT 97
[2017-10-02] MEDS ORDERED: DC IV INSULIN INFUSION ONE (16:00)
--- NOTE | 2017-10-02 17:33 | Progress Note ---
Internal Med Progress Note Date of Service: Oct 02, 2017. Provider Documentation: SUBJECTIVE: resting comfortably denies any chest pain says sob improved no cough no other complaints OBJECTIVE: Vital Signs-as noted below Exam: General-alert and oriented. Not in distress ENT-Normal hearing Neck-no neck masses Lungs-cta b/l no wheezing or crackles Heart-S1 and S2 heard regular rate and rhythm, no murmurs Abdomen-soft bowel sounds present no tenderness no distension Extremities-no edema no erythema Neuro-alert and awake moves extremities Lab data as noted below. ASSESSMENT & PLAN: ACUTE HYPOXIC RESPIRATORY FAILURE BILATERAL Extensive PULMONARY EMBOLISM Right heart strain on echo hemodynamics stable on iv heparin pulmonary consulted HYPERGLYCEMIA, UNCONTROLLED DM hgb a1c10.2 patient self stopped metformin felipe to d/c on insulin at discharge ELEVATED TROPONIN NSTEMI from demand ischemia from above likely demand ischemia from hypoxia / acute PE serial CE slightly elevated but trending down echo right heart strain asymptomatic AMPARO resolved. will stop fluids. ASTHMA EXACERBATION has wheezing on presentation s/p solumedrol 125mg IV in the ED, to continue with Prednisone 40mg PO x 5 days stable now CHRONIC DIASTOLIC CHF appears dry on exam and with AMPARO does not take diuretics will monitor HTN BP elevated - patient self stopped metoprolol and lisinopril; will resume metoprolol, holding on Lisinopril due to AMPARO restart lisinopril in am HLD patient self stopped statin LDL 90 HDL 37 PULMONARY NODULES outpatient follow up CT DVT PROPHYLAXIS Heparin gtt DISPO to be determined Vital Signs: Date Time Temp Pulse Resp B/P (MAP) Pulse Ox O2 Delivery O2 Flow Rate FiO2 10/02/17 16:00 Room Air 10/02/17 15:05 36.7 75 21 162/87 (112) 97 Room Air 10/02/17 12:16 36.5 79 20 142/101 (115) 93 Room Air 10/02/17 12:00 Room Air 10/02/17 08:33 37.0 84 20 155/88 (110) 96 10/02/17 08:00 Room Air 10/02/17 04:00 93 Room Air 10/02/17 04:00 36.5 78 20 122/84 (97) 93 Room Air 10/01/17 23:59 36.6 83 20 132/86 (101) 95 Room Air 10/01/17 23:59 95 Room Air 10/01/17 21:17 36.9 75 20 132/82 (99) 94 Room Air 10/01/17 20:00 Room Air Lab Results: Results Past 24 Hours Test 10/01/17 17:40 10/01/17 18:28 10/01/17 18:33 10/01/17 19:40 Range/Units Bedside Glucose 293 293 271 70-99 mg/dl Urine Color YELLOW Urine Appearance CLEAR CLEAR Urine pH 5.5 4.5-7.5 Urine Specific [place] 1.041 1.000-1.030 Urine Protein 2+ NEG Urine Glucose (UA) 3+ NEG Urine Ketones TRACE NEG Urine Occult Blood TRACE NEG Urine Nitrite NEG NEG Urine Bilirubin NEG NEG Urine Urobilinogen NEG NEG Urine Leukocyte Esterase NEG NEG Urine WBC (Auto) 1-5 0-5 /hpf Urine RBC (Auto) 0-4 0-4 /hpf Urine Hyaline Casts (Auto) 0 0-5 /lpf Urine Epithelial Cells (Auto) 5-10 0-5 /lpf Urine Bacteria (Auto) NEG NEG Test 10/01/17 20:34 10/01/17 20:40 10/01/17 21:41 10/01/17 22:35 Range/Units Activated Partial Thromboplast Time 52.7 21.0-31.0 SECONDS Partial Thromboplastin Ratio 2.0 Potassium Level 4.0 3.5-5.1 mmol/L Troponin I 0.175 0-0.045 ng/ml Bedside Glucose 216 193 172 70-99 mg/dl Test 10/01/17 23:26 10/02/17 01:02 10/02/17 01:56 10/02/17 03:05 Range/Units Bedside Glucose 128 131 127 132 70-99 mg/dl Test 10/02/17 04:57 10/02/17 05:17 10/02/17 07:05 10/02/17 09:22 Range/Units Bedside Glucose 121 115 175 70-99 mg/dl White Blood Count 11.83 4.8-10.8 K/uL Red Blood Count 5.13 4.7-6.1 M/uL Hemoglobin 15.3 14.0-18.0 g/dL Hematocrit 44.4 42-52 % Mean Corpuscular Volume 86.5 80-100 fL Mean Corpuscular Hemoglobin 29.8 25-34 pg Mean Corpuscular Hemoglobin Concent 34.5 32-36 g/dl RDW Standard Deviation 43.2 36.4-46.3 fL RDW Coefficient of Variation 13.7 11.5-14.5 % Platelet Count 143 130-400 K/uL Mean Platelet Volume 12.4 7.4-10.4 fL Activated Partial Thromboplast Time 51.1 21.0-31.0 SECONDS Partial Thromboplastin Ratio 2.0 Sodium Level 137 136-145 mmol/L Potassium Level 3.8 3.5-5.1 mmol/L Chloride Level 106 98-107 mmol/L Carbon Dioxide Level 22 21-32 mmol/L Anion Gap 9.0 3-11 mmol/L Blood Urea Nitrogen 15 7-18 mg/dl Creatinine 0.97 0.60-1.40 mg/dl Est Creatinine Clear Calc Drug Dose 96.0 ml/min Estimated GFR () 95.2 Estimated GFR (Non- 82.2 BUN/Creatinine Ratio 15.5 10-20 Random Glucose 113 70-99 mg/dl Estimated Average Glucose 246 mg/dl Hemoglobin A1c 10.2 4.5-5.6 % Calcium Level 8.6 8.5-10.1 mg/dl Triglycerides Level 119 0-150 mg/dl Cholesterol Level 151 0-200 mg/dl HDL Cholesterol 37 mg/dl LDL Cholesterol, Calculated 90 mg/dl VLDL Cholesterol, Calculated 24 mg/dl Cholesterol/HDL Ratio 4.1 Test 10/02/17 09:54 10/02/17 10:59 Range/Units Bedside Glucose 158 113 70-99 mg/dl
--- NOTE | 2017-10-02 18:28 | PULMONARY CONSULTATION ---
DATE OF CONSULTATION: 10/02/2017 TIME: 4:40 p.m. HISTORY OF PRESENT ILLNESS: The patient was seen in room #229, bed #2. He is a 62-year-old male who came to the Emergency Room yesterday with a history of shortness of breath for about 3 weeks. Early on, he had had cold-like symptoms. He had some sinus congestion. Subsequently, he had a cough. He then had some postnasal drip. He states that this often ends up leading to nausea and vomiting as it did for him. He then seemingly got over this upper respiratory infection. He has been having more shortness of breath than normal, however. He has been winded with any significant exertion. He has had some shortness of breath at rest. There has been no chest pains. He has not had any recent chills, fevers or sweats. The patient was found to have a room air oxygen saturation of 81%, in the Emergency Room. He had a CT angio of the chest done as part of his evaluation. The CAT scan showed extensive bilateral pulmonary emboli. These were seen in both the right and left main pulmonary arteries. They extend out into all the lobar branches. In addition, he was found to have 2 small nodules in the left lower lobe. One measured 7 mm and the other measured 4 mm. There was some reflux of contrast into the IVC and hepatic vein suggesting cardiac dysfunction. Cholelithiasis was noted. Pertinent history is that Mr. Serra had a DVT approximately 2012. This occurred after a leg injury. He thinks it was the right leg that was involved, but he is not 100% certain. He states they did not find blood clots in the lung at that time. He was treated with Coumadin for 1 year. Today, he is feeling substantially better. He is less short of breath. He has not been doing any significant exertion other than going to the bathroom, but he is less winded at rest. His oxygenation has normalized. This afternoon, he had a saturation of 97% on room air. There is no family history of blood clotting as far as he knows. PAST SURGICAL HISTORY: Right cataract surgery. PAST MEDICAL HISTORY: 1. Mild asthma. 2. DVT - 2012 as mentioned. 3. CHF - diastolic. 4. Hyperlipidemia. 5. Hypertension. 6. Diabetes. SOCIAL HISTORY: Tobacco -- never. ETOH -- approximately 1 alcoholic beverage per week. FAMILY HISTORY: Father at age 68 -- lung cancer. He had been a smoker. Mother age 87 -- Alzheimer disease and mini strokes. ALLERGIES: No known allergies. 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 REVIEW OF SYSTEMS: The patient has not had any pleuritic pain at all. There has been no hemoptysis. Denies headache or dizziness. His appetite has been good. He has lost 60 pounds in the past 1 year. He has purposely been dieting very significantly. He denies any known history of malignancy. He did not have any injury or precipitating factors for blood clotting. As noted, he has never smoked. He has not had any travel history, recently. His last airplane flight was November of 2016. The symptoms that he had several weeks ago related to a respiratory type infection have all resolved. The remainder of the review of systems is negative except as noted above. PHYSICAL EXAMINATION: GENERAL: The patient is a pleasant 62-year-old male who was cooperative, alert and oriented. He was in no distress. VITAL SIGNS: Temperature is 36.7. HEENT: Eye exam showed disconjugate gaze. He can see very little out of the left eye and it deviates laterally. Right eye has evidence of an implant. Nares were mildly congested. Mouth exam was unremarkable. NECK: Palpation of the neck reveals no lymph nodes. HEART: The cardiac rate was 90 per minute. The rhythm appeared regular. Blood pressure was 162/87. LUNGS: Lung augutse revealed mild wheezing with some rhonchi in the bases. As noted, oxygen saturation was 97% on room air. Respiratory rate was 20. ABDOMEN: Soft. Bowel sounds were present. There was no tenderness to palpation, masses or organomegaly. EXTREMITIES: Showed no cyanosis, clubbing or edema. LABORATORY DATA: White count is 11.83. Hemoglobin 15.3. Platelets 143,000. PTT is 51.1. INR was 1 yesterday. Urinalysis showed 2+ protein, 3+ glucose. Electrolytes show sodium 137, potassium 3.8, chloride 106, bicarbonate 22. BUN is 15 with a creatinine of 0.97. The patient's troponins were mildly elevated to a maximum of 0.277. Hemoglobin A1c was 10.2. AST was normal at 28 and ALT was normal at 34. Blood cultures are pending. IMAGING DATA: The patient did have an echocardiogram done. This reported a normal ejection fraction between 65 and 70%. The right ventricle was not well visualized but was thought to be severely dilated. The right ventricular systolic function is reported as moderate to severely reduced. He reported the Doppler data does not suggest pulmonary hypertension, but 2D images were consistent with the diagnosis of pulmonary embolism with right ventricular strain pattern. IMPRESSION: 1. Extensive bilateral pulmonary emboli. 2. Lung nodules x2, left lower lobe with the largest being 7 mm. COMMENTS AND RECOMMENDATIONS: The patient is currently on IV heparin. Apparently, they are trying to determine if his insurance will cover the novel anticoagulants. I believe it would be preferential to treat him with Xarelto or Eliquis if possible. The patient indicated he does not drive. For him to get to the lab to have routine INRs done, requires him to pay for transportation. Depending upon how long this takes, consideration could be given to bridging him to Lovenox. This would especially be valuable if he has to go back on Coumadin. I believe we should check venous Dopplers on this patient. I explained to him I do want him ambulating until we see if there is a clot burden in his legs. I believe the patient will need long-term anticoagulation in light of the fact this is his second clotting event. Thank you for asking me to assist in his care.
--- NOTE | 2017-10-02 18:45 | DIAGNOSTIC IMAGING REPORT ---
ULTRASOUND BILATERAL LOWER EXTREMITY VENOUS CLINICAL HISTORY: Pulmonary embolus. COMPARISON STUDY: No priors. TECHNIQUE: Real-time, grayscale, and color Doppler sonography of the deep veins of the right and left lower extremity was performed from the inguinal crease to the calf. Compression and augmentation were utilized. FINDINGS: Right lower extremity: There is nearly occlusive deep venous thrombosis identified in the right popliteal vein and within the calf in the right peroneal vein. The common femoral and superficial femoral veins are patent and normally compressible. The greater saphenous vein and the profunda femoris vein at the junction with the common femoral vein are clear. The remaining calf veins are patent. Left lower extremity: Nearly occlusive thrombus is seen throughout the left superficial femoral vein. This the common occlusive in the left popliteal vein. Thrombus is present within the left calf within the posterior tibial and peroneal veins. The common femoral vein is patent and normally compressible. The greater saphenous vein and the profunda femoris vein at the junction with the common femoral vein are clear. IMPRESSION: Bilateral deep venous thrombosis as above. Electronically signed by: Tim Cullen M.D. 10/02/2017 6:44 PM Dictated Date/Time: 10/02/2017 6:42 PM
[2017-10-02 19:54] VITALS: BP 168/88; PULSE 88; TEMP 36.7; O2SAT 99
[2017-10-02 23:46] VITALS: BP 144/85; PULSE 77; TEMP 36.7; O2SAT 97
[2017-10-03 03:41] VITALS: BP 164/93; PULSE 71; TEMP 36.5; O2SAT 96
[2017-10-03 06:34] LABS: HEMATOCRIT 45.1 % (42-52); HEMOGLOBIN 15.6 g/dL (14.0-18.0); MEAN CELL VOLUME 86.9 fL (80-100); MEAN CORPUSCULAR HEMOGLOBIN 30.1 pg (25-34); MEAN CORPUSCULAR HGB CONC 34.6 g/dl (32-36); MEAN PLATELET VOLUME 12.2 fL (7.4-10.4); PLATELET COUNT 128 K/uL (130-400); RED CELL DISTRIBUTION WIDTH CV 13.6 % (11.5-14.5); WHITE BLOOD COUNT 8.48 K/uL (4.8-10.8)
[2017-10-03 06:41] LABS: PTT PATIENT 52.8 SECONDS (21.0-31.0)
[2017-10-03] MEDS: METOPROLOL SUCC 25MG EXT REL TAB PO SCH (08:07)
[2017-10-03] MEDS: CEROVITE ADV FORMULA TAB PO SCH (08:07)
[2017-10-03] MEDS: ASPIRIN 81 MG ECTAB PO SCH (08:07)
[2017-10-03] MEDS: INSULIN GLARGINE SOLOSTAR 100 UNITS/ML 3 ML PEN SC SCH (08:14)
[2017-10-03] MEDS: INSULIN ASPART 100 UNITS/ML 3 ML PEN SC SCH ×4 (08:14→20:42)
[2017-10-03 08:19] VITALS: BP 172/102; PULSE 80; TEMP 36.7; O2SAT 97
--- NOTE | 2017-10-03 10:27 | Pharmacy Progress Note ---
Pharmacy Glycemic Short Note 2 Date of Service Oct 03, 2017. OUTPATIENT ANTIDIABETIC REGIMEN: * None- self stopped metformin * A1c = 10.2% on 09/22/17 ASSESSMENT: * 62yo T2DM male admitted with b/l PE and severe hyperglycemia secondary to poor outpatient control and steroids * Pt initiated on IV insulin infusion 10/01/17 and then transitioned to SQ basal bolus on 10/02/17 based on an estimated total daily dose of about 75-80 units/day * Steroids currently ordered at prednisone 40mg PO daily. * NPH is the preferred basal insulin for steroid induced hyperglycemia secondary to once daily prednisone, however, suspect that patient will need 24hr basal at discharge based on elevated A1c. Therefore, will use Lantus instead of NPH * Pt has received 68 units of sq insulin over the past 24 hrs + short time on IV insulin infusion yesterday morning * 40 units of basal insulin * 28 units of prandial/correctional insulin * AM fasting BSG is near goal range at 142 mg/dl with current basal insulin dosing. May continue to drop with repeated Lantus dosing once it reaches steady state. * Post prandial BSGs slightly elevated at 242, 199, will tighten CF/CR slightly. PLAN FOR INPATIENT GLYCEMIC CONTROL: * Basal insulin: no change * Lantus 40 units SQ AM * Will try to keep basal insulin at once daily to simplify outpatient regimen * Bolus insulin: tighten parameters * NovoLog per scale ACHS or Q6hrs while NPO * Goal Range: Low 120 mg/dL - High 150 mg/dL * Correction Factor: 15 mg/dL/unit * Nutritional / Prandial insulin per carb ratio of 1 unit per 5 grams CHO consumed PLAN FOR DISCHARGE: * A1c significantly elevated at 10.2% * Discussed plans for discharge with performing arts road manager. * Recommend Metformin + basal insulin. * Basal insulin dosing to be determined closer to discharge since current dosing is stressed for prednisone
[2017-10-03 11:35] VITALS: BP 160/89; PULSE 62; TEMP 36.6; O2SAT 95
--- NOTE | 2017-10-03 11:58 | PULMONARY PROGRESS NOTE ---
DATE: 10/03/2017 TIME: 10:25 a.m. SUBJECTIVE: The patient feels pretty well. He is just a little frustrated. He did have venous Dopplers done yesterday evening. He has extensive DVT in both the right and left leg. This is despite the fact he has no symptoms or findings. He remains on the heparin infusion. There still has not been a decision as to whether his insurance will pay for Xarelto or Eliquis. The patient had a sister and [id number] present during my exam. They had numerous questions which they asked. I tried to answer them as best as I could. He does not feel short of breath, but he realizes he is wheezing somewhat. OBJECTIVE: GENERAL: The patient appeared comfortable. VITAL SIGN: Temperature was 36.7. The heart rate was 77 per minute. The rhythm is regular. Blood pressure is elevated at 172/102. EARS, NOSE, AND THROAT: Exam is unchanged from yesterday. LUNGS: Auscultation of the lung auguste revealed wheezing bilaterally. It would be mild. It would be mainly on expiration. His oxygen saturation on room air is 97%. EXTREMITIES: Showed no cyanosis, clubbing or edema. LABORATORY DATA: White count today was 8.48. Hemoglobin 15.6. Platelets 128,000. They have decreased slightly. PTT this morning was 52.8. IMPRESSIONS: 1. Acute pulmonary embolism. 2. Deep venous thrombosis of the right and left legs. 3. Multiple lung nodules. Further suggestions are dependent upon what anticoagulation he will be on in the long-term. If he would not be approved for the newer agents, he would then have to go on Coumadin. I believe he would likely be best served by FitBarknox while that transition is occurring. I am going to discourage him from ambulating today, but likely could tomorrow. He will have then 3 days of anticoagulation. Considering the degree of clots he has had, he appears overall quite stable. We will defer to hospitalist team regarding the patient's blood pressure control.
[2017-10-03 12:51] VITALS: BMI 34.5
[2017-10-03 15:31] VITALS: BP 112/77; PULSE 87; TEMP 36.7; O2SAT 95
[2017-10-03] MEDS: HEPARIN 25,000 UNIT/500ML D5W 500 ML IV PRN (16:40)
--- NOTE | 2017-10-03 17:40 | Progress Note ---
Internal Med Progress Note Date of Service: Oct 03, 2017. Provider Documentation: SUBJECTIVE: says he is doing fine while resting but with activity getting sob no chest pain afebrile eating fine hemodynamics stable OBJECTIVE: Vital Signs-as noted below Exam: General-alert and oriented. Not in distress ENT-Normal hearing Neck-no neck masses Lungs-cta b/l no wheezing or crackles Heart-S1 and S2 heard regular rate and rhythm, no murmurs Abdomen-soft bowel sounds present no tenderness no distension Extremities-no edema no erythema Neuro-alert and awake moves extremities Lab data as noted below. ASSESSMENT & PLAN: ACUTE HYPOXIC RESPIRATORY FAILURE BILATERAL Extensive PULMONARY EMBOLISM Right heart strain on echo hemodynamics stable on iv heparin pulmonary consulted and appreciate inputs starting xarelto. Will d/c iv heparin at the same time Xarelto started. HYPERGLYCEMIA, UNCONTROLLED DM hgb a1c10.2 patient self stopped metformin felipe to d/c on insulin at discharge 199/142/166/188 ELEVATED TROPONIN NSTEMI from demand ischemia from above likely demand ischemia from hypoxia / acute PE serial CE slightly elevated but trending down echo right heart strain asymptomatic AMPARO resolved. will stop fluids. ASTHMA EXACERBATION has wheezing on presentation s/p solumedrol 125mg IV in the ED, to continue with Prednisone 40mg PO x 5 days #2 stable now CHRONIC DIASTOLIC CHF appears dry on exam and with AMPARO does not take diuretics will monitor HTN BP elevated - patient self stopped metoprolol and lisinopril; will resume metoprolol, holding on Lisinopril due to AMPARO Will restart lisinopril in am HLD patient self stopped statin LDL 90 HDL 37 PULMONARY NODULES outpatient follow up CT DVT PROPHYLAXIS Heparin gtt will be stopped staring on Xarelto DISPO to be determined Vital Signs: Date Time Temp Pulse Resp B/P (MAP) Pulse Ox O2 Delivery O2 Flow Rate FiO2 10/03/17 15:31 36.7 87 20 112/77 (89) 95 Room Air 10/03/17 12:00 Room Air 10/03/17 11:35 36.6 62 20 160/89 (112) 95 Room Air 10/03/17 08:19 36.7 80 20 172/102 (125) 97 Room Air 10/03/17 08:00 Room Air 10/03/17 04:00 Room Air 10/03/17 03:41 36.5 71 18 164/93 (116) 96 Room Air 10/03/17 00:00 Room Air 10/02/17 23:46 36.7 77 16 144/85 (104) 97 10/02/17 20:00 Room Air 10/02/17 19:54 36.7 88 20 168/88 (114) 99 Room Air Lab Results: Results Past 24 Hours Test 10/02/17 20:01 10/03/17 05:21 10/03/17 07:02 10/03/17 11:31 Range/Units Bedside Glucose 199 142 166 70-99 mg/dl White Blood Count 8.48 4.8-10.8 K/uL Red Blood Count 5.19 4.7-6.1 M/uL Hemoglobin 15.6 14.0-18.0 g/dL Hematocrit 45.1 42-52 % Mean Corpuscular Volume 86.9 80-100 fL Mean Corpuscular Hemoglobin 30.1 25-34 pg Mean Corpuscular Hemoglobin Concent 34.6 32-36 g/dl RDW Standard Deviation 43.0 36.4-46.3 fL RDW Coefficient of Variation 13.6 11.5-14.5 % Platelet Count 128 130-400 K/uL Mean Platelet Volume 12.2 7.4-10.4 fL Platelet Estimate DECREASED Activated Partial Thromboplast Time 52.8 21.0-31.0 SECONDS Partial Thromboplastin Ratio 2.0 Test 10/03/17 16:13 Range/Units Bedside Glucose 188 70-99 mg/dl
[2017-10-03 19:38] VITALS: BP 140/89; PULSE 76; TEMP 36.8; O2SAT 94
[2017-10-03] MEDS: RIVAROXABAN TAB 15 MG TAB PO SCH (22:15)
[2017-10-03 23:52] VITALS: BP 122/74; PULSE 59; TEMP 36.6; O2SAT 96
[2017-10-04] VITALS (9 sets, daily range): BP systolic 126–174; BP diastolic 85–101; PULSE 59–68; TEMP 36.6–36.7; O2SAT 94–96; BMI 33.9
[2017-10-04 06:11] LABS: PTT PATIENT 27.3 SECONDS (21.0-31.0)
[2017-10-04] MEDS: CEROVITE ADV FORMULA TAB PO SCH (07:11)
[2017-10-04] MEDS: ASPIRIN 81 MG ECTAB PO SCH (07:11)
[2017-10-04] MEDS: METOPROLOL SUCC 25MG EXT REL TAB PO SCH (07:11)
[2017-10-04] MEDS: RIVAROXABAN TAB 15 MG TAB PO SCH ×2 (07:12→16:22)
[2017-10-04] MEDS: INSULIN GLARGINE SOLOSTAR 100 UNITS/ML 3 ML PEN SC SCH (07:16)
[2017-10-04] MEDS: INSULIN ASPART 100 UNITS/ML 3 ML PEN SC SCH ×3 (07:54→16:15)
[2017-10-04] MEDS ORDERED: LISINOPRIL 10 MG TAB PO SCH (09:00)
--- NOTE | 2017-10-04 11:41 | Consultant Recommendations ---
Math And Science Instructor Recommendations Date of Service Oct 04, 2017. Math And Science Instructor Recommendations 1. Followup appointment with pulmonary in [address], [address] on: October 23, 2017 at 3:15 pm. 2. Prednisone 20 mg on Sunday10-05-17 and 10 mg on Sunday10-06-17, then stop.
--- NOTE | 2017-10-04 12:05 | PULMONARY PROGRESS NOTE ---
DATE: 10/04/2017 PROBLEM LIST: Includes: 1. Acute pulmonary embolism. 2. Deep venous thrombosis of the right and left legs. 3. Multiple lung nodules. 4. History of asthma. SUBJECTIVE: The patient reports that he is feeling well today. He was converted over to Xarelto last evening and the heparin was stopped. He states that he does not really have any difficulties at present and he states that his breathing is doing well. He does have a little bit of wheezing, but has not been using his Advair since admission. He has been on prednisone which is being tapered down. He has not had any difficulty with this. He has not had any chest discomfort, no breathing difficulties, no cough, no wheeze, no GI difficulties. No swelling in his extremities. OBJECTIVE: GENERAL: The patient is a 62-year-old male sitting at bedside. His sister was in the room when we evaluated him. He is alert and oriented x3. Mood is good. Affect is good. Able to complete sentences without difficulty. VITAL SIGNS: Temp 36.7, pulse 59, respirations 18, blood pressure was elevated this morning at 170/101, pulse ox 95% on room air. NECK: Supple. No mass, no adenopathy or bruit. CHEST: The patient does have few expiratory wheezes diffusely throughout. No rale or rhonchi were noted. He does have pretty good air movement throughout. CARDIOVASCULAR: He has regular rate and rhythm. No murmurs, gallops or rubs. ABDOMEN: Bowel sounds present. Abdomen is soft, nontender. No guarding, rigidity or organomegaly. EXTREMITIES: Trace edema, no erythema, no tenderness to palpation. NEUROLOGIC: Cranial nerves II-XII are intact. No focal deficit noted. LABORATORY DATA: No recent labs. IMAGING DATA: No recent imaging. IMPRESSION: This is a 62-year-old male who presented with bilateral deep venous thrombosis and pulmonary embolism which was unprovoked. I am unsure of the etiology at this time. The patient has been converted over to Xarelto and is doing well. At this point, I see no reason why from a pulmonary standpoint the patient cannot be discharged to home. I had a long discussion with the patient and his sister regarding things to avoid including climbing stairs without rales, try to avoid slippery surfaces, avoid working with any heavy equipment or sharp objects if possible; the patient voiced understanding. At this point, did recommend that he restart his Advair due to his very mild wheezing. He will have a prednisone taper. We did work to get him a bonus card for the Xarelto so that it would be covered. He is to be seen in the office on 10/23/2017 at 3:15 in the afternoon. If there are any questions before that, he is to contact the office prior to this. REMY
--- NOTE | 2017-10-04 13:21 | Pharmacy Progress Note ---
Glycemic: Assessment & Plan Date of Service Oct 04, 2017. Assessment & Plan ASSESSMENT & PLAN: * Patient requiring 70 units of insulin/day while on Prednisone 40mg daily * - 40 units from Lantus, pt to go home on Metformin and Lantus for A1c 10.2% DISCHARGE RECOMMENDATIONS: * Resume home Metformin 850mg po BID * Lantus 40 units SQ daily (continue even after Prednisone has stopped)
[2017-10-04] MEDS ORDERED: ALBU18002 INH ×2 (14:44→15:38)
[2017-10-04] MEDS ORDERED: PRD20 PO ×2 (14:44→15:38)
[2017-10-04] MEDS ORDERED: ADVIN25/60 INH ×2 (14:44→15:38)
[2017-10-04] MEDS ORDERED: INSU100I23 SC ×2 (14:44→15:38)
[2017-10-04] MEDS ORDERED: METF-841 PO ×2 (14:44→15:38)
[2017-10-04] MEDS ORDERED: METO-478 PO ×2 (14:44→15:38)
[2017-10-04] MEDS ORDERED: LISI-791 PO ×2 (14:44→15:38)
--- NOTE | 2017-10-04 14:49 | Discharge Instructions ---
Discharge Instructions Date of Service Oct 04, 2017. Admission Reason for Admission: Hypoxia Discharge Discharge Diagnosis / Problem: Hypoxia, extensive b/l PE, b/l lower extremity DVT,ARF, Discharge Goals Goal(s): Decrease discomfort, Improve function Activity Recommendations Activity Limitations: resume your previous activity . Instructions / Follow-Up Instructions / Follow-Up FOLLOWUP WITH FAMILY DOCTOR Chun Jensen ON Oct AT 1:45PM FOLLOWUP WITH PULMONARY AT [address] [facility], [address] on: October 23, 2017 at 3: 15 pm. TO CHECK BLOOD SUGARS TWICE DAILY EITHER BEFORE BREAKFAST, LUNCH OR DINNER OR BEFORE GOING TO SLEEP AND NOTE THE READINGS ON A LOG BOOK AND SHOW THE READINGS TO FAMILY DOCTOR FOR FURTHER ADJUSTMENTS OF DIABETIC MEDICATIONS. CALL FAMILY DOCTOR IF BLOOD SUGARS GREATER THAN 350 OR LESS THAN 80. TO TAKE ORANGE JUICE OR SUGAR WHEN BLOOD SUGARS DROPS BELOW 80. TO TAKE ALL MEDICATIONS PRESCRIBED REGULARLY LAB: BMP IN ONE WEEK AND FOLLOW RESULTS WITH FAMILY DOCTOR Current Hospital Diet Patient's current hospital diet: AHA Diet (Heart Healthy), Diabetes Type 2 Diet Discharge Diet Recommended Diet: AHA Diet (Heart Healthy), Diabetes Type 2 Diet Pending Studies Studies pending at discharge: no Laboratory Results Hemoglobin A1c Test 10/02/17 05:17 Range/Units Estimated Average Glucose 246 mg/dl Hemoglobin A1c 10.2 H 4.5-5.6 % Lipid Panel Test 10/02/17 05:17 Range/Units Triglycerides Level 119 0-150 mg/dl Cholesterol Level 151 0-200 mg/dl HDL Cholesterol 37 mg/dl Cholesterol/HDL Ratio 4.1 LDL Cholesterol, Calculated 90 mg/dl Medical Emergencies . Who to Call and When: Medical Emergencies: If at any time you feel your situation is an emergency, please call 911 immediately. . Non-Emergent Contact Non-Emergency issues call your: Primary Care Provider . . "Provider Documentation" section prepared by Omer Phoenix. . Fixture Designer Recommendations Fixture Designer Recommendations: 1. Followup appointment with pulmonary in [address] [facility], [address] on: October 23, 2017 at 3:15 pm. 2. Prednisone 20 mg on Sunday10-05-17 and 10 mg on Sunday10-06-17, then stop. VTE Core Measure Inpt VTE Proph given/why not?: Other Anticoagulation (IV HEPARIN)
[2017-10-04] MEDS ORDERED: RIVA1TAB7 PO ×2 (15:07→15:38)
--- NOTE | 2017-10-04 17:35 | Progress Note ---
Internal Med Progress Note Date of Service: Oct 04, 2017. Provider Documentation: SUBJECTIVE: no sob or chest pain ambulating fine no cough ok to go home OBJECTIVE: Vital Signs-as noted below Exam: General-alert and oriented. Not in distress ENT-Normal hearing Neck-no neck masses Lungs-cta b/l no wheezing or crackles Heart-S1 and S2 heard regular rate and rhythm, no murmurs Abdomen-soft bowel sounds present no tenderness no distension Extremities-no edema no erythema Neuro-alert and awake moves extremities Lab data as noted below. ASSESSMENT & PLAN: ACUTE HYPOXIC RESPIRATORY FAILURE BILATERAL Extensive PULMONARY EMBOLISM Right heart strain on echo hemodynamics stable on iv heparin pulmonary consulted and appreciate inputs starting xarelto. Will d/c iv heparin at the same time Xarelto started. discharged on xarelto. to followup with pulmonary HYPERGLYCEMIA, UNCONTROLLED DM hgb a1c10.2 patient self stopped metformin felipe to d/c on insulin at discharge discharged on metformin er and basaglar insulin close f/u with pcp ELEVATED TROPONIN NSTEMI from demand ischemia from above likely demand ischemia from hypoxia / acute PE serial CE slightly elevated but trending down echo right heart strain asymptomatic AMPARO resolved. will stop fluids. ASTHMA EXACERBATION has wheezing on presentation s/p solumedrol 125mg IV in the ED, to continue with Prednisone 40mg PO x 5 days #3 stable now CHRONIC DIASTOLIC CHF appears dry on exam and with AMPARO does not take diuretics will monitor HTN BP elevated - patient self stopped metoprolol and lisinopril; will resume metoprolol, holding on Lisinopril due to AMPARO restarted lisinopril . f/u with pcp HLD patient self stopped statin LDL 90 HDL 37 PULMONARY NODULES outpatient follow up CT Discharged home Vital Signs: Date Time Temp Pulse Resp B/P (MAP) Pulse Ox O2 Delivery O2 Flow Rate FiO2 10/04/17 15:46 94 Room Air 10/04/17 14:40 36.7 59 16 96 Nasal Cannula 10/04/17 12:45 96 Room Air 10/04/17 11:52 36.7 59 16 126/85 (99) 94 Room Air 10/04/17 08:07 36.7 59 18 170/101 (124) 95 Room Air 10/04/17 08:00 96 Room Air 10/04/17 04:00 96 Room Air 10/04/17 03:47 36.6 68 18 174/98 (123) 96 Room Air 10/04/17 00:00 96 Room Air 10/03/17 23:52 36.6 59 18 122/74 (90) 96 Room Air 10/03/17 20:00 Room Air 10/03/17 19:38 36.8 76 20 140/89 (106) 94 Room Air Lab Results: Results Past 24 Hours Test 10/03/17 20:09 10/04/17 05:21 10/04/17 06:51 10/04/17 11:36 Range/Units Bedside Glucose 229 109 185 70-99 mg/dl Activated Partial Thromboplast Time 27.3 21.0-31.0 SECONDS Partial Thromboplastin Ratio 1.1
--- NOTE | 2017-10-04 18:55 | Discharge Summary ---
Discharge Summary Date of Service Oct 04, 2017. Discharge Summary Admission Date: Oct 01, 2017 at 11:20 Discharge Date: Oct 04, 2017 Discharge Disposition: Home Principal Diagnosis: ACUTE EXTENSIVE BILATERAL PE ACUTE BILATERAL DVT UNCONTROLLED DM Secondary Diagnoses/Problems: (1) Asthma Status: Chronic (2) Diastolic CHF Status: Chronic (3) DVT (deep venous thrombosis) Permanent Comment: 2012, completed 1 year of Coumadin therapy Status: Chronic (4) Dyslipidemia Status: Chronic (5) HTN (hypertension) Status: Chronic Procedures: CTA CHEST: 1. There are extensive bilateral pulmonary emboli as above. 2. There is no airspace consolidation or pleural effusion. 3. There are 2 pathologically indeterminant left lower lobe pulmonary nodules measuring up to 7 mm. These can be followed as per the Fleischner criteria. See below. 4. Reflux of contrast into the IVC and hepatic veins suggests cardiac dysfunction. 5. Cholelithiasis. LOWER EXTREMITY DOPPLER: Bilateral deep venous thrombosis ECHO: The left ventricular cavity is small and appears underfilled. * The interventricular septum is flattened consistent with RV pressure/ volume overload. * The LV wall motion is otherwise normal. * The left ventricle is hyperdynamic with LV Ejection Fraction = 65-70%. * The right ventricle is not well visualized however it appears to be severely dilated. * The right ventricular systolic function is moderate to severely reduced. * Although Doppler data does not suggest pulmonary hypertension , the 2D , images are consistent with clinical diagnosis of pulmonary embolism with right ventricular strain pattern. * No piror studies are available for comparison. Consultations: PULMONARY Medication Reconciliation New Medications: Insulin Glargine (Basaglar Kwikpen) 100 Unit/Ml Inj 40 UNITS SC DAILYBB for 30 Days, #1 PEN 2 Refills Metformin HCl (Metformin HCl ER) 1,000 Mg Tab 1000 MG PO BID for 30 Days, #60 TAB 2 Refills Rivaroxaban (Xarelto Starter Pack 15 & 20 mg) 1 Tab Tab 15 MG PO UD for 30 Days, #30 TABS 3 Refills XARELTO 15MG PO TWICE DAILY FOR 21 DAYS THEN XARELTO 20MG PO ONCE DAILY Prednisone (Prednisone) 20 Mg Tab 40 MG PO DAILY for 2 Days, #4 TAB Continued Medications: Albuterol Sulfate (Proair Respiclick) 108 Mcg/Act Aer 2 PUFFS INH QID PRN for SOB/Wheezing, #1 INHALER 2 Refills (This prescription has been renewed) Aspirin (Aspirin) 81 Mg Tab 81 MG PO DAILY takes 4-5 times/week Atorvastatin (Lipitor) 10 Mg Tab 1 TAB PO DAILY for 30 Days, #30 TAB 5 Refills patient has not been taking Fexofenadine Hcl (Pilar) 180 Mg Tab 180 MG PO DAILY PRN, TAB Fluticasone Prop/Salmeterol (Advair Diskus 250/50 60 Dose) 1 Ea Aerp 1 PUFF INH BID, #1 INHALER 1 Refill (This prescription has been renewed) patient has not been using Lisinopril (Zestril) 10 Mg Tab 10 MG PO DAILY, #30 TAB 2 Refills (This prescription has been renewed) patient has not been taking Metoprolol Succinate (Toprol Xl) 25 Mg Tab 25 MG PO DAILY, #30 TAB 2 Refills (This prescription has been renewed) patient has not been taking Multiple Vitamins W/ Minerals (Centrum Silver 50+Men) 1 Tab Tab 1 TAB PO DAILY Discontinued Medications: Metformin Hcl (Glucophage) 850 Mg Tab 1 TAB PO BID for 30 Days, #60 TAB 5 Refills patient has not been taking Admission Information HPI (per Admitting provider): 62 year old male who presents to the ED with shortness of breath. Patient reports his symptoms have been present for the past 3 weeks. He reports it initially started with sinus congestion and cough. He then developed nausea and vomiting. He denies hematemesis or coffee ground emesis. He had episodes of body aches, hot flashes, and chills. He did not take his temperature. He reports most of his symptoms resolved about 3 days ago however shortness of breath and cough has persisted. He has shortness of breath with minimal exertion. Cough has been non productive. He has history of asthma however does not use his inhalers routinely. He also self stopped most of his medications several months ago. He denies abdominal pain or diarrhea. No lightheadedness, dizziness, diaphoresis, or syncopal events. He denies chest pain. No urinary symptoms. In the ED, patient's labs show a mildly elevated troponin and hyperglycemia. He was also hypoxic on room air at 81%, this improved with oxygen 2L via NC. CTA chest shows BL PEs. Physical Exam (per Admitting): please refer to Dr. Malone's addendum for physical exam Hospital Course ACUTE HYPOXIC RESPIRATORY FAILURE BILATERAL Extensive PULMONARY EMBOLISM Right heart strain on echo hemodynamics stable on iv heparin pulmonary consulted and appreciate inputs starting xarelto. Will d/c iv heparin at the same time Xarelto started. discharged on xarelto. to followup with pulmonary HYPERGLYCEMIA, UNCONTROLLED DM hgb [id number] patient self stopped metformin felipe to d/c on insulin at discharge discharged on metformin er and basaglar insulin close f/u with pcp ELEVATED TROPONIN NSTEMI from demand ischemia from above likely demand ischemia from hypoxia / acute PE serial CE slightly elevated but trending down echo right heart strain asymptomatic AMPARO resolved. will stop fluids. ASTHMA EXACERBATION has wheezing on presentation s/p solumedrol 125mg IV in the ED, to continue with Prednisone 40mg PO x 5 days #3 stable now CHRONIC DIASTOLIC CHF appears dry on exam and with AMPARO does not take diuretics will monitor HTN BP elevated - patient self stopped metoprolol and lisinopril; will resume metoprolol, holding on Lisinopril due to AMPARO restarted lisinopril . f/u with pcp HLD patient self stopped statin LDL 90 HDL 37 PULMONARY NODULES outpatient follow up CT Discharged home Total time spent on discharge = 40MINUTES This includes examination of the patient, discharge planning, medication reconciliation, and communication with other providers. Discharge Instructions Discharge Instructions Date of Service Oct 04, 2017. Admission Reason for Admission: Hypoxia Discharge Discharge Diagnosis / Problem: Hypoxia, extensive b/l PE, b/l lower extremity DVT,ARF, Discharge Goals Goal(s): Decrease discomfort, Improve function Activity Recommendations Activity Limitations: resume your previous activity . Instructions / Follow-Up Instructions / Follow-Up FOLLOWUP WITH FAMILY DOCTOR Chun Jensen ON Oct AT 1:45PM FOLLOWUP WITH PULMONARY AT [facility], [address] on: October 23, 2017 at 3: 15 pm. TO CHECK BLOOD SUGARS TWICE DAILY EITHER BEFORE BREAKFAST, LUNCH OR DINNER OR BEFORE GOING TO SLEEP AND NOTE THE READINGS ON A LOG BOOK AND SHOW THE READINGS TO FAMILY DOCTOR FOR FURTHER ADJUSTMENTS OF DIABETIC MEDICATIONS. CALL FAMILY DOCTOR IF BLOOD SUGARS GREATER THAN 350 OR LESS THAN 80. TO TAKE ORANGE JUICE OR SUGAR WHEN BLOOD SUGARS DROPS BELOW 80. TO TAKE ALL MEDICATIONS PRESCRIBED REGULARLY LAB: BMP IN ONE WEEK AND FOLLOW RESULTS WITH FAMILY DOCTOR Current Hospital Diet Patient's current hospital diet: AHA Diet (Heart Healthy), Diabetes Type 2 Diet Discharge Diet Recommended Diet: AHA Diet (Heart Healthy), Diabetes Type 2 Diet Pending Studies Studies pending at discharge: no Laboratory Results Hemoglobin A1c Test 10/02/17 05:17 Range/Units Estimated Average Glucose 246 mg/dl Hemoglobin A1c 10.2 H 4.5-5.6 % Lipid Panel Test 10/02/17 05:17 Range/Units Triglycerides Level 119 0-150 mg/dl Cholesterol Level 151 0-200 mg/dl HDL Cholesterol 37 mg/dl Cholesterol/HDL Ratio 4.1 LDL Cholesterol, Calculated 90 mg/dl Medical Emergencies . Who to Call and When: Medical Emergencies: If at any time you feel your situation is an emergency, please call 911 immediately. . Non-Emergent Contact Non-Emergency issues call your: Primary Care Provider . . "Provider Documentation" section prepared by Omer Phoenix. . Layout Technician Recommendations Layout Technician Recommendations: 1. Followup appointment with pulmonary in [place], [address] on: October 23, 2017 at 3:15 pm. 2. Prednisone 20 mg on Sunday10-05-17 and 10 mg on Sunday10-06-17, then stop. VTE Core Measure Inpt VTE Proph given/why not?: Other Anticoagulation (IV HEPARIN)
[2017-10-08 15:39] VITALS: Ht 177.8 cm; Wt 107.1 kg
== END 2017-10-04 17:00 | disposition home or self-care (01) | DRG 175 ==
LOC: C.EDB 08:57 → C.2T 11:20 → ENRESERV 11:36
PROVIDERS: ADMIT Hospitalist; ATTEND Internal Medicine
DX: I26.99 Other pulmonary embolism without acute cor pulmonale (principal); I82.403 Acute embolism and thrombosis of unspecified deep veins of lower extremity, bilateral; I21.A1 Myocardial infarction type 2; J96.01 Acute respiratory failure with hypoxia; I50.32 Chronic diastolic (congestive) heart failure; J45.901 Unspecified asthma with (acute) exacerbation; N17.9 Acute kidney failure, unspecified; E78.5 Hyperlipidemia, unspecified; E11.65 Type 2 diabetes mellitus with hyperglycemia; I11.0 Hypertensive heart disease with heart failure; E86.0 Dehydration; Z79.84 Long term (current) use of oral hypoglycemic drugs; R91.1 Solitary pulmonary nodule; Z86.718 Personal history of other venous thrombosis and embolism

== ENCOUNTER → 2017-12-06 | Outpatient (CLI) | payer OTHER ==
[~2017-12-06] MED LIST changes: +ADVIN25/60 INH; +ALBU18002 INH; +ATOR10TA82 PO; -CEPH500C PO; -Centrum Silver PO; +INSU100I23 SC; +METF-841 PO; +MULT-1093 PO; +PRD20 PO; +RIVA1TAB7 PO; -WARF5TAB90 PO
--- NOTE | 2017-12-06 15:16 | DIAGNOSTIC IMAGING REPORT ---
CT ANGIOGRAM OF THE CHEST CLINICAL HISTORY: Pulmonary embolism. Follow-up study. SHORTNESS OF BREATH. ASTHMA. COMPARISON STUDY: October 01, 2017 TECHNIQUE: Following the IV administration of 92 mL of Optiray-320, CT angiogram of the thorax was performed from the thoracic inlet to the lung bases utilizing the pulmonary embolus protocol. Images are reviewed in the axial, sagittal, and coronal planes. IV contrast was administered without complication. MIP imaging was performed. A dose lowering technique was utilized adhering to the principles of ALARA. CT DOSE: 591.43 mGy.cm FINDINGS: No pathologically enlarged axillary mediastinal or hilar lymph nodes were visualized. There was no evidence of thoracic aortic dilatation. No acute pulmonary emboli are visualized. There are subtle linear filling defects within right lower lobe pulmonary artery branches, consistent with chronic fibrin residua. No pleural effusions are visualized. There is a stable 5 mm left lower lobe pulmonary nodule. There is a second stable 5 mm left lower lobe pulmonary nodule. There is a stable 4 mm right lower lobe pulmonary nodule. There is no acute parenchymal consolidation. There is a new 4 mm right lower lobe pulmonary nodule as visualized in image #[id number]. 6 month follow-up is recommended. IMPRESSION: 1. Interval resolution of the bilateral pulmonary emboli with minor residual fibrin stranding within the right lower lobe pulmonary artery branches 2. New solid 4 mm right lower lobe pulmonary nodule as visualized in image #144/[id number]. The other previously identified pulmonary nodules remain stable. 6 month follow-up is recommended. Electronically signed by: Ashish Turner M.D. 12/06/2017 3:15 PM Dictated Date/Time: 12/06/2017 3:07 PM
--- NOTE | 2017-12-06 15:59 | DIAGNOSTIC IMAGING REPORT ---
ULTRASOUND VENOUS DOPPLER [facility] CLINICAL HISTORY: J45.909 Chronic asthma. History of prior DVT. Follow-up study. COMPARISON STUDY: 10/02/2017 FINDINGS: On the right, the common femoral and superficial femoral veins were patent. There is nonocclusive thrombus within the right popliteal vein and posterior tibial vein. On the left, there is extensive nearly occlusive thrombus within the left superficial femoral vein and popliteal vein. There is nonocclusive thrombus in the left posterior tibial and peroneal veins. There is no common femoral vein thrombus of the left. IMPRESSION: 1. No significant change from the preceding study 2. Persistent bilateral DVT with involvement of the right popliteal and posterior tibial veins, and involvement of the left superficial femoral, popliteal, posterior tibial and peroneal veins. Electronically signed by: Ashish Turner M.D. 12/06/2017 3:57 PM Dictated Date/Time: 12/06/2017 3:55 PM
== END | disposition home or self-care (01) ==
LOC: C.CTS 14:20
PROVIDERS: ATTEND Physician Assistant
DX: J45.909 Unspecified asthma, uncomplicated (principal); R91.8 Other nonspecific abnormal finding of lung field; I82.431 Acute embolism and thrombosis of right popliteal vein; I82.441 Acute embolism and thrombosis of right tibial vein; I82.811 Embolism and thrombosis of superficial veins of right lower extremity